=== PATIENT | female | born 1980 | race African-American/Black ===

== ENCOUNTER 2020-09-10 04:30 | Emergency (ER) | payer SELFPAY ==
[~2020-09-10] VITALS: Ht 162.6 cm; Wt 61.2 kg
--- NOTE | 2020-09-10 04:30 | NUR ---
PT BIB [facility], PREBOOK. TAKEN TO CHAIR
[2020-09-10 04:34] VITALS: BP 126/81
--- NOTE | 2020-09-10 05:06 | NUR ---
PT RETURN FROM XRAY
[2020-09-10] MEDS ORDERED: IBUPROFEN 600 MG TAB PO ONE (05:10)
--- NOTE | 2020-09-10 05:15 | NUR ---
PATIENT BIB [facility]. PATIENT EXAMINED BY DR. DUNN. PATIENT MEDICALLY CLEARED AND RELEASED IN CUSTODY IN STABLE CONDITION. ORIGINAL PRE-BOOK FORM GIVEN TO OFFICER [place], #[id number].
== END 2020-09-10 05:15 ==
LOC: MED 04:30
DX: M25.531 Pain in right wrist (principal); Z04.1 Encounter for examination and observation following transport accident; Z02.89 Encounter for other administrative examinations
CPT/HCPCS: 73110; 99283